=== PATIENT | male | born 1935 | race Caucasian/White ===

== ENCOUNTER → 2021-10-11 | Outpatient (CLI) | payer OTHER ==
[~2021-10-11] MED LIST: ASPIRIN CHEWABL81 MG PO; BUDESONIDE EC3 MG PO; CALCIUM500 MG PO; CARDURA4 MG PO; COREG 12.5MG12.5 MG PO; FISH OIL 1,0001 EAC1 PO; FISH OIL500 MG PO; GLUCOSAMINE1000 MG PO; LIPITOR TAB 2020 MG PO; MULTI VITAMIN; MULTIPLE VITAM1 EACH PO; NORCO 5-325 TA1 EACH PO; NORVASC 5 MG TAB5 MG PO; PLAVIX 75 MG TA75 MG PO; SINEMET 25/100 T1 EA PO; SULFADIAZINE500 MG PO; VANCOCIN 125MG/2.5ML PO
== END ==
LOC: LAB 18:28
DX: R60.9 Edema, unspecified (principal)
CPT/HCPCS: 84300